=== PATIENT | male | born 1965 | race Two or more races ===

== ENCOUNTER 2024-02-10 16:25 | Emergency (ER) | payer SELFPAY ==
[~2024-02-10] VITALS: Ht 177.8 cm; Wt 99.8 kg
[2024-02-10 16:48] VITALS: BP 171/91; TEMP 97.9
[2024-02-10] MEDS ORDERED: IBUP-1957 PO (17:01)
[2024-02-10] MEDS ORDERED: AMLO10TA4 PO (17:01)
[2024-02-10] MEDS ORDERED: ACETAMINOPHEN ES 500 MG TABLET ONE (17:06)
[2024-02-10] MEDS ORDERED: IBUPROFEN 600 MG TABLET ONE (17:07)
[2024-02-10] MEDS: IBUPROFEN 600 MG TABLET PO ONE (17:09)
[2024-02-10] MEDS: ACETAMINOPHEN ES 500 MG TABLET PO ONE (17:09)
[2024-02-10 17:16] VITALS: O2SAT 99
== END 2024-02-10 17:16 | disposition home or self-care (01) ==
LOC: ER 16:36
DX: K08.89 Other specified disorders of teeth and supporting structures (principal); R51.9 Headache, unspecified; I10 Essential (primary) hypertension